=== PATIENT | female | born 2000 | race Caucasian/White ===

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

== ENCOUNTER → 2018-01-10 | Outpatient (REF) | payer OTHER ==
[2018-01-10 17:05] LABS: CHOLESTEROL LEVEL 220 MG/DL (<200); CHOLESTEROL RISK RATIO 5.116 (<5); HDL CHOLESTEROL 43 MG/DL (>40); LDL CHOLESTEROL 160.8 MG/DL (<100); NON-HDL-C 177 MG/DL; TRIGLYCERIDES LEVEL 81 MG/DL (<150)
== END ==
LOC: M SFHCCLAY 09:28
DX: E66.9 Obesity, unspecified (principal)
CPT/HCPCS: 80061

== ENCOUNTER → 2018-06-11 | Outpatient (REF) | payer OTHER ==
[2018-06-11 18:07] LABS: CHLAMYDIA DNA AMPLIFICATION NEGATIVE (NEGATIVE); GC DNA AMPLIFICATION NEGATIVE (NEGATIVE)
== END ==
LOC: M SFHCWAGY 16:00
DX: Z11.3 Encounter for screening for infections with a predominantly sexual mode of transmission (principal)

== ENCOUNTER → 2018-07-30 | Outpatient (CLI) | payer OTHER | LOC: M RAD 07:44 | DX: R10.11 Right upper quadrant pain (principal) ==

== ENCOUNTER → 2018-09-26 | Outpatient (CLI) | payer OTHER | LOC: M RAD 12:06 | DX: M54.5 Low back pain (principal); M54.2 Cervicalgia | CPT/HCPCS: 72052 ==

== ENCOUNTER → 2018-10-12 | Outpatient (CLI) | payer OTHER ==
[~2018-10-12] MED LIST: GASTROGRAFIN SOLUTION 30ML (Q9963) As Ordered; ISOVUE-370 76% 100ML VIAL (Q9967) As Ordered
== END ==
LOC: M RAD 16:31
DX: R10.11 Right upper quadrant pain (principal)
CPT/HCPCS: Q9963

== ENCOUNTER → 2018-10-29 | Outpatient (CLI) | payer OTHER ==
[~2018-10-29] MED LIST changes: -GASTROGRAFIN SOLUTION 30ML (Q9963) As Ordered; -ISOVUE-370 76% 100ML VIAL (Q9967) As Ordered; +LO LTAB PO; +OMEP20CA3 PO; +SUCR1TAB56 PO
--- NOTE | 2018-10-29 10:46 | REP ---
Hepatobiliary scan and gallbladder ejection fraction: History: Right upper quadrant pain. Technique: 6.6 mCi of technetium-99m mebrofenin was injected and sequential anterior images are acquired. 65 minutes after the mebrofenin injection, the patient consumed 8 ounces Ensure and an additional 60 minutes of imaging was acquired. Regions of interest are plotted around the gallbladder. Findings: The initial hepatocellular parenchymal uptake phase is normal and homogeneous. Intra- and extra-hepatic bile ducts and duodenum are labeled by the 10 -minute image. The gallbladder is first labeled on the 15 -minute image. There is normal washout from the liver parenchyma into the gallbladder and small intestine on subsequent images. The gallbladder ejection fraction is 53 %. Values greater than 35 % are considered normal with this technique. Impression: Normal hepatobiliary scan and normal gallbladder ejection fraction. Electronically Signed by Mello Sosa MD 10/29/2018 10:37 A
== END ==
LOC: M RAD 07:15
PROVIDERS: ATTEND Surgery
DX: R10.11 Right upper quadrant pain (principal)
CPT/HCPCS: 78227; A9537; J2805

== ENCOUNTER → 2018-11-26 | Outpatient (CLI) | payer OTHER ==
[~2018-11-26] MED LIST changes: +E-Z-GAS II EFFERVESCENT PACKET (SODIUM BICARB./CITRIC ACID/SIMETHICONE) As Ordered ONE; +E-Z-HD 98% w/w 340GM SUSP BTL As Ordered ONE; +E-Z-PAQUE 96% w/w SUSP 176GM BTL As Ordered ONE
--- NOTE | 2018-11-26 20:16 | REP ---
UPPER GI AIR CONTRAST AND SMALL BOWEL FOLLOW THROUGH The procedure was performed under the direct supervision of Dr. Sosa. The images were reviewed with Dr. Sosa The bottoming machine operator film shows no organomegaly or pathological masses. The intestinal gas pattern is non-specific. Liquid barium and gas producing crystals were given in the erect position as well as liquid barium in the prone oblique position in order to perform a double contrast upper GI examination. Additionally liquid barium was given at the end of the examination in order to perform a small bowel follow through. The oral and pharyngeal stages of deglutition are unremarkable. Esophageal transport is prompt and efficient and there is no esophagitis, stricture, mucosal ring or hiatal hernia. Gastroesophageal reflux is not demonstrated on this examination. The stomach ascencio are normally outlined . The rugal folds are smooth and regular. There is no gastritis neoplasm or ulcer disease. The duodenal ascencio are normally outlined . The mucosal folds are smooth and regular. There is no duodenitis pancreatitis peptic ulcer disease or neoplasm. The visualized portion of the proximal small bowel appears normal in course and caliber. The barium column was followed through the small bowel to the level of the terminal ileum. Small bowel transit time is approximately 30 minutes . During fluoroscopy gentle palpation shows all loops are freely movable and pliable. There are no fixed or angulated loops. The small bowel mucosal pattern is normal in course and caliber. There is no transition to suggest a partial small-bowel obstruction. Spot filming of the terminal ileum shows it to be unremarkable. Impression: Essentially unremarkable double contrast upper GI and small bowel follow through examination. 2.5 minutes of fluoro time was utilized for this procedure. Reviewed by YAHAIRA Tracey 11/26/2018 04:56 P Electronically Signed by Mello Sosa MD 11/26/2018 08:09 P
== END ==
LOC: M RAD 10:45
PROVIDERS: ATTEND Surgery
DX: K21.9 Gastro-esophageal reflux disease without esophagitis (principal)

== ENCOUNTER → 2019-03-27 | Outpatient (REF) | payer OTHER ==
[~2019-03-27] MED LIST changes: -E-Z-GAS II EFFERVESCENT PACKET (SODIUM BICARB./CITRIC ACID/SIMETHICONE) As Ordered ONE; -E-Z-HD 98% w/w 340GM SUSP BTL As Ordered ONE; -E-Z-PAQUE 96% w/w SUSP 176GM BTL As Ordered ONE
== END ==
LOC: M SFHCLERA 17:14
PROVIDERS: ATTEND Physician Assistant
DX: J02.9 Acute pharyngitis, unspecified (principal)

== ENCOUNTER → 2019-05-13 | Outpatient (CLI) | payer OTHER ==
[~2019-05-13] MED LIST changes: +OMEP1CAP73 PO; -OMEP20CA3 PO
[2019-05-13 21:01] LABS: ALBUMIN 3.9 GM/DL (3.2-5.2); ALT/SGPT 27 U/L (12-78); BILIRUBIN,TOTAL 0.3 MG/DL (0.2-1.0); BLOOD UREA NITROGEN 12 MG/DL (7-18); CALCIUM LEVEL 8.9 MG/DL (8.5-10.1); CARBON DIOXIDE LEVEL 26 MEQ/L (21-32); CHLORIDE LEVEL 104 MEQ/L (98-107); GLUCOSE, FASTING 71 MG/DL (70-100); POTASSIUM SERUM 4.4 MEQ/L (3.5-5.1); SODIUM LEVEL 138 MEQ/L (136-145)
[2019-05-13 21:10] LABS: BASO # 0.1 10^3/uL (0.0-0.2); BASO % 0.4 % (0.0-1.0); EOS # 0.2 10^3/uL (0.0-0.50); EOS % 1.1 % (0.0-3.0); HEMATOCRIT 41.7 % (36.0-47.0); HEMOGLOBIN 13.7 g/dl (12.0-15.5); LYMPH % 17.6 % (24.0-44.0); MEAN CORPUSCULAR HEMOGLOBIN 28.8 pg (27.0-33.0); MEAN CORPUSCULAR HGB CONC 32.9 g/dl (32.0-36.5); MEAN CORPUSCULAR VOLUME 87.6 fl (80.0-96.0); MONO # 1.5 10^3/uL (0.0-0.8); MONO % 9.1 % (0.0-5.0); NEUTROPHILS # 12.1 10^3/uL (1.8-7.7); NEUTROPHILS % 71.3 % (36.0-66.0); PLATELET COUNT, AUTOMATED 347 10^3/uL (150-450); RED BLOOD COUNT 4.76 10^6/uL (4.00-5.40)
[2019-05-15 14:34] LABS: EBV AB TO NUCLEAR ANTIGEN >600.0 U/mL (0.0-17.9); EBV VIRAL CAPSID AG IgM <36.0 U/mL (0.0-35.9)
== END ==
LOC: M WUC 18:28
PROVIDERS: ATTEND Physician Assistant
DX: J01.10 Acute frontal sinusitis, unspecified (principal)

== ENCOUNTER → 2019-05-19 | Outpatient (CLI) | payer OTHER ==
[~2019-05-19] MED LIST changes: -OMEP1CAP73 PO; +OMEP20CA4 PO
[2019-05-19 17:29] LABS: BASO # 0.1 10^3/uL (0.0-0.2); BASO % 0.7 % (0.0-1.0); EOS # 0.3 10^3/uL (0.0-0.50); EOS % 4.4 % (0.0-3.0); HEMATOCRIT 40.7 % (36.0-47.0); HEMOGLOBIN 13.2 g/dl (12.0-15.5); LYMPH # 2.8 10^3/uL (1.5-6.5); LYMPH % 36.3 % (24.0-44.0); MEAN CORPUSCULAR HEMOGLOBIN 29.2 pg (27.0-33.0); MEAN CORPUSCULAR HGB CONC 32.4 g/dl (32.0-36.5); MONO # 0.3 10^3/uL (0.0-0.8); MONO % 4.2 % (0.0-5.0); NEUTROPHILS # 4.1 10^3/uL (1.8-7.7); NEUTROPHILS % 54.1 % (36.0-66.0); PLATELET COUNT, AUTOMATED 388 10^3/uL (150-450); RED BLOOD COUNT 4.52 10^6/uL (4.00-5.40); WHITE BLOOD COUNT 7.6 10^3/uL (4.0-10.0)
== END ==
LOC: M WUC 09:15
PROVIDERS: ATTEND Physician Assistant
DX: J01.10 Acute frontal sinusitis, unspecified (principal)

== ENCOUNTER → 2019-06-12 | Outpatient (REF) | payer OTHER ==
[2019-06-12 16:32] LABS: CHLAMYDIA DNA AMPLIFICATION NEGATIVE (NEGATIVE); GC DNA AMPLIFICATION NEGATIVE (NEGATIVE)
== END ==
LOC: M SFHCWAGY 10:34
PROVIDERS: ATTEND Nurse Practitioner Family
DX: Z12.4 Encounter for screening for malignant neoplasm of cervix (principal)

== ENCOUNTER → 2019-12-24 | Outpatient (REF) | payer OTHER ==
[~2019-12-24] MED LIST changes: +OMEP1CAP73 PO; -OMEP20CA4 PO
[2019-12-24 12:23] LABS: BASO % 0.7 % (0.0-1.0); EOS # 0.2 10^3/uL (0.0-0.5); EOS % 3.4 % (0.0-3.0); HEMATOCRIT 44.8 % (36.0-47.0); HEMOGLOBIN 13.9 g/dl (12.0-15.5); LYMPH # 2.3 10^3/uL (1.5-5.0); LYMPH % 38.1 % (24.0-44.0); MEAN CORPUSCULAR HEMOGLOBIN 28.4 pg (27.0-33.0); MEAN CORPUSCULAR VOLUME 91.6 fl (80.0-96.0); MONO # 0.5 10^3/uL (0.0-0.8); MONO % 7.7 % (0.0-5.0); NEUTROPHILS % 49.9 % (36.0-66.0); PLATELET COUNT, AUTOMATED 323 10^3/uL (150-450); RED BLOOD COUNT 4.89 10^6/uL (4.00-5.40)
[2019-12-24 12:43] LABS: ALBUMIN 3.7 GM/DL (3.2-5.2); ALT/SGPT 23 U/L (12-78); BILIRUBIN,TOTAL 0.2 MG/DL (0.2-1.0); BLOOD UREA NITROGEN 13 MG/DL (7-18); CALCIUM LEVEL 9.2 MG/DL (8.5-10.1); CARBON DIOXIDE LEVEL 29 MEQ/L (21-32); CHLORIDE LEVEL 109 MEQ/L (98-107); CHOLESTEROL LEVEL 214 MG/DL (<200); CHOLESTEROL RISK RATIO 5.095 (<5); CREATININE FOR GFR 0.75 MG/DL (0.55-1.30); FREE T4 1.05 NG/DL (0.76-1.46); GLOMERULAR FILTRATION RATE > 60.0 (>60); GLUCOSE, FASTING 89 MG/DL (70-100); HDL CHOLESTEROL 42 MG/DL (>40); LDL CHOLESTEROL 150 MG/DL (<100); NON-HDL-C 172 MG/DL; POTASSIUM SERUM 4.8 MEQ/L (3.5-5.1); SODIUM LEVEL 142 MEQ/L (136-145); TOTAL PROTEIN 7.1 GM/DL (6.4-8.2); TRIGLYCERIDES LEVEL 109 MG/DL (<150)
[2019-12-24 13:03] LABS: HEMOGLOBIN A1c 5.2 %
== END ==
LOC: M SFHCCLAY 07:40
PROVIDERS: ATTEND Nurse Practitioner Family
DX: K11.20 Sialoadenitis, unspecified (principal); Z68.41 Body mass index [BMI] 40.0-44.9, adult; E66.9 Obesity, unspecified; Z83.49 Family history of other endocrine, nutritional and metabolic diseases

== ENCOUNTER → 2020-01-02 | Outpatient (CLI) | payer OTHER ==
--- NOTE | 2020-01-02 15:27 | REP ---
SOFT TISSUE SONOGRAPHY OF THE NECK: HISTORY: Lump near the thyroid. Submandibular gland inflammation. FINDINGS: Bilateral submandibular gland area is scanned. The right submandibular gland measures 3.4 x 1.6 x 3.1 cm. There is a small lymph node within the right submandibular gland measuring 0.6 x 0.6 x 0.5 cm. The palpable area in the right side of the neck is scanned and this felt to correspond to a lymph node measuring 2.1 x 0.9 x 1.6 cm. This appears hypoechoic and somewhat enlarged with ascencio of hilar architecture. There is a adjacent smaller lymph node measuring 1.3 x 0.4 x 1.6 cm in the right neck. On the left submandibular gland measures 4.0 x 2.3 x 2.6 cm. There is an 0.9 x 0.6 x 1.4 cm lymph node in the left submandibular gland. There are two lymph nodes in the left neck, the largest of which measures 2.7 x 1.3 x 1.0 cm. This lymph node has preserved hilar architecture but that cortical thickening consistent with hypertrophy. IMPRESSION: Mild bilateral cervical lymphadenopathy. Clinical followup is recommended. If these do not subsided, ultrasound guided fine needle aspiration could be considered. Electronically Signed by Mello Sosa MD 01/02/2020 05:06 P
== END ==
LOC: M RAD 12:58
PROVIDERS: ATTEND Nurse Practitioner Family
DX: K11.20 Sialoadenitis, unspecified (principal)

== ENCOUNTER → 2020-02-25 | Outpatient (CLI) | payer OTHER | LOC: M LABSMTC 11:11 | PROVIDERS: ATTEND Family Medicine | DX: Z11.59 Encounter for screening for other viral diseases (principal); Z20.818 Contact with and (suspected) exposure to other bacterial communicable diseases ==

== ENCOUNTER → 2020-04-23 | Outpatient (REF) | payer OTHER | LOC: M SFHCCLAY 11:16 | PROVIDERS: ATTEND Nurse Practitioner Family | DX: Z11.59 Encounter for screening for other viral diseases (principal) ==

== ENCOUNTER → 2020-05-05 | Outpatient (REF) | payer OTHER ==
[~2020-05-05] MED LIST changes: +AMOX875T; +PRED20TA PO
== END ==
LOC: M SFHCCLAY 11:13
PROVIDERS: ATTEND Nurse Practitioner Family
DX: Z11.59 Encounter for screening for other viral diseases (principal)

== ENCOUNTER 2020-05-25 09:31 | Emergency (ER) | payer OTHER ==
[~2020-05-25] VITALS: Ht 167.6 cm; Wt 126.1 kg
[~2020-05-25 09:31] MED LIST changes: -AMOX875T; -PRED20TA PO
[2020-05-25] MEDS ORDERED: AMOX875T (09:39)
[2020-05-25] MEDS ORDERED: predniSONE 20 MG TAB PO ONE (11:15)
[2020-05-25 11:32] LABS: BASO # 0.1 10^3/uL (0.0-0.2); BASO % 0.5 % (0.0-1.0); EOS # 0.1 10^3/uL (0.0-0.5); EOS % 1.4 % (0.0-3.0); HEMATOCRIT 44.7 % (36.0-47.0); HEMOGLOBIN 14.6 g/dl (12.0-15.5); LYMPH # 1.9 10^3/uL (1.5-5.0); LYMPH % 18.5 % (24.0-44.0); MEAN CORPUSCULAR HEMOGLOBIN 28.9 pg (27.0-33.0); MEAN CORPUSCULAR HGB CONC 32.7 g/dl (32.0-36.5); MEAN CORPUSCULAR VOLUME 88.5 fl (80.0-96.0); MONO # 0.7 10^3/uL (0.0-0.8); MONO % 6.9 % (0.0-5.0); NEUTROPHILS # 7.3 10^3/uL (1.5-8.5); NEUTROPHILS % 72.3 % (36.0-66.0); PLATELET COUNT, AUTOMATED 278 10^3/uL (150-450); RED BLOOD COUNT 5.05 10^6/uL (4.00-5.40); WHITE BLOOD COUNT 10.1 10^3/uL (4.0-10.0)
[2020-05-25 11:58] LABS: MONO REFLEX EBV COMP NEGATIVE (NEGATIVE)
[2020-05-25] MEDS ORDERED: ISOVUE-370 76% 100ML VIAL As Ordered ONE (12:40)
--- NOTE | 2020-05-25 13:11 | REPVR ---
PROCEDURE INFORMATION: Exam: CT Neck With Contrast Exam date and time: 05/25/2020 12:49 PM Age: 19 years old Clinical indication: Pain; Other: Sore throat, trouble swallowing, sts on xray TECHNIQUE: Imaging protocol: Computed tomography images of the neck with intravenous contrast. Radiation optimization: All CT scans at this facility use at least one of these dose optimization techniques: automated exposure control; mA and/or kV adjustment per patient size (includes targeted exams where dose is matched to clinical indication); or iterative reconstruction. Contrast material: ISOVUE 370; Contrast volume: 75 ml; Contrast route: INTRAVENOUS (IV); COMPARISON: CR Soft Tissue Neck 05/25/2020 11:26 AM FINDINGS: Nasopharynx: There is diffuse thickening of the adenoids, with heterogeneity. Oropharynx: The lingual tonsils are enlarged, potentially reactive. Hypopharynx: Unremarkable. Larynx: Unremarkable. Normal epiglottis. Retropharyngeal space: Unremarkable. Submandibular/Parotid glands: Normal. Glands are normal in size. Thyroid: Normal. No enlarged or calcified nodules. Lymph nodes: There are enlarged upper cervical lymph nodes, likely reactive. Trachea: Visualized trachea is unremarkable. Lungs: Unremarkable as visualized. Bones/joints: Unremarkable. No acute fracture. Soft tissues: Unremarkable. No significant soft tissue swelling. IMPRESSION: Findings compatible with adenoiditis. Diffuse enlargement of the lingual tonsils may be reactive or inflammatory in nature. Associated lymphadenopathy. Electronically signed by: Alina Kitchen On 05/25/2020 13:10:50 PM
[2020-05-25 13:41] VITALS: BP 132/76
[2020-05-25] MEDS ORDERED: PRED20TA PO (13:42)
--- NOTE | 2020-05-25 14:32 | REP ---
REASON FOR EXAM: Sore throat, difficulty swallowing. PRIORS: None. The base of the epiglottis seems thickened and possibly slightly compromising the airway. The neck soft tissues are otherwise within normal limits. There is no evidence of a retropharyngeal abscess. IMPRESSION: Findings involving the epiglottis as described above. Contrast enhanced neck CT is recommended. Electronically Signed by Ramesh Nichols DO 05/25/2020 05:13 P
--- NOTE | 2020-05-26 14:08 | ED PDOC ---
Post-Departure Follow-Up requested wallace calle to contact pt to assess condition. if improved she will fax st neck to [facility]. if worse pt to come back to ED. This report will be faxed to [facility] for fu Yuli House MD May 26, 2020 14:08
[2020-05-26 18:13] LABS: EBV AB TO NUCLEAR ANTIGEN >600.0 U/mL (0.0-17.9); EBV VIRAL CAPSID AG IgM <36.0 U/mL (0.0-35.9)
== END 2020-05-25 14:00 | disposition home or self-care (01) ==
LOC: M ED 09:31
DX: J03.90 Acute tonsillitis, unspecified (principal); R59.0 Localized enlarged lymph nodes; Z79.3 Long term (current) use of hormonal contraceptives; Z79.899 Other long term (current) drug therapy
CPT/HCPCS: 70360; 70491; 80047; 84702; 85025; 86308; 86664; 86665; 87880; 99284; Q9967

== ENCOUNTER → 2020-07-06 | Outpatient (CLI) | payer OTHER ==
[~2020-07-06] MED LIST changes: +AMOX875T; +PRED20TA PO
--- NOTE | 2020-08-07 09:19 | REP ---
PELVIC ULTRASOUND: HISTORY: Pelvic pain. Ovarian cyst. TECHNIQUE: Transabdominal pelvic ultrasound followed by transvaginal examination for better evaluation of the endometrium and adnexa with color Doppler evaluation of the ovaries. FINDINGS: The bladder appears normal and measures 10.2 x 7.8 x 7.8 cm. Normal anteverted uterus measures 5.3 x 2.9 x 3.3 cm. The endometrial complex measures 3.3 mm thickness. No discrete uterine or endometrial abnormalities are identified. The bilateral ovaries are normal in appearance and vascularity with multiple follicles. No significant cystic changes are appreciated. The right ovary measures 2.9 x 1.8 x 1.6 cm (RI equals 0.51). The left ovary measures 3.2 x 1.7 x 2.1 cm (RI equals 0.57). No pelvic fluid or adnexal mass lesion. IMPRESSION: Normal pelvic ultrasound. MTDD
== END ==
LOC: M WHC 13:03
PROVIDERS: ATTEND Nurse Practitioner Family
DX: N83.299 Other ovarian cyst, unspecified side (principal)

== ENCOUNTER → 2020-07-16 | Outpatient (CLI) | payer OTHER ==
--- NOTE | 2020-08-11 14:27 | REP ---
NECK ULTRASOUND CLINICAL: Lymphadenopathy. COMPARISON: 01/02/2020. TECHNIQUE: Real-time rincon scale and color evaluation using linear high frequency and curved array transducers. FINDINGS: Ultrasound examination again demonstrates bilateral prominent cervical chain lymph nodes essentially stable and unchanged compared to prior examination. Right-sided lymph nodes measure 21 x 5 x 11, 23 x 6 x 13, and 22 x 8 x 17 mm. Left-sided lymph nodes measure 10 x 5 x 10 mm, 12 x 9 x 4 mm, and 25 x 30 x 12 mm. IMPRESSION: Mildly prominent bilateral adenopathy (right greater than left) similar to prior examination. MTDD
== END ==
LOC: M RAD 16:01
PROVIDERS: ATTEND Otolaryngology
DX: R59.1 Generalized enlarged lymph nodes (principal)

== ENCOUNTER → 2020-10-29 | Outpatient (REF) | payer OTHER | LOC: M LAB REF 15:53 | PROVIDERS: ATTEND Physician Assistant | DX: Z11.59 Encounter for screening for other viral diseases (principal) ==

== ENCOUNTER → 2021-01-20 | Outpatient (REF) | payer OTHER ==
[2021-01-20 17:17] LABS: BASO # 0.1 10^3/uL (0.0-0.2); BASO % 0.7 % (0.0-1.0); EOS # 0.3 10^3/uL (0.0-0.5); EOS % 3.4 % (0.0-3.0); HEMATOCRIT 43.7 % (36.0-47.0); HEMOGLOBIN 14.1 g/dl (12.0-15.5); LYMPH % 36.8 % (24.0-44.0); MEAN CORPUSCULAR HEMOGLOBIN 29.1 pg (27.0-33.0); MEAN CORPUSCULAR HGB CONC 32.3 g/dl (32.0-36.5); MEAN CORPUSCULAR VOLUME 90.1 fl (80.0-96.0); MONO # 0.7 10^3/uL (0.0-0.8); MONO % 8.2 % (2.0-8.0); NEUTROPHILS # 4.2 10^3/uL (1.5-8.5); NEUTROPHILS % 50.5 % (36.0-66.0); PLATELET COUNT, AUTOMATED 373 10^3/uL (150-450); RED BLOOD COUNT 4.85 10^6/uL (4.00-5.40); WHITE BLOOD COUNT 8.2 10^3/uL (4.0-10.0)
[2021-01-20 17:19] LABS: ALBUMIN 3.7 GM/DL (3.2-5.2); ALT/SGPT 24 U/L (12-78); BILIRUBIN,TOTAL 0.2 MG/DL (0.2-1.0); BLOOD UREA NITROGEN 12 MG/DL (7-18); CALCIUM LEVEL 9.8 MG/DL (8.5-10.1); CARBON DIOXIDE LEVEL 31 MEQ/L (21-32); CHLORIDE LEVEL 103 MEQ/L (98-107); CHOLESTEROL LEVEL 229 MG/DL (<200); CHOLESTEROL RISK RATIO 5.452 (<5); CREATININE FOR GFR 0.67 MG/DL (0.55-1.30); FREE T4 0.82 NG/DL (0.76-1.46); GLOMERULAR FILTRATION RATE > 60.0 (>60); GLUCOSE, FASTING 87 MG/DL (70-100); HDL CHOLESTEROL 42 MG/DL (>40); LDL CHOLESTEROL 156 MG/DL (<100); NON-HDL-C 187 MG/DL; POTASSIUM SERUM 4.8 MEQ/L (3.5-5.1); SODIUM LEVEL 139 MEQ/L (136-145); TOTAL PROTEIN 7.5 GM/DL (6.4-8.2); TRIGLYCERIDES LEVEL 153 MG/DL (<150)
[2021-01-20 18:53] LABS: HEMOGLOBIN A1c 5.4 %
== END ==
LOC: M SFHCCLAY 13:59
PROVIDERS: ATTEND Nurse Practitioner Family
DX: E66.9 Obesity, unspecified (principal); K21.9 Gastro-esophageal reflux disease without esophagitis; F41.8 Other specified anxiety disorders

== ENCOUNTER → 2021-03-04 | Outpatient (REF) | payer OTHER | LOC: M SFHCCLAY 16:49 | PROVIDERS: ATTEND Physician Assistant | DX: J02.9 Acute pharyngitis, unspecified (principal) ==

== ENCOUNTER 2021-03-19 16:55 | Observation (INO) | payer OTHER ==
[~2021-03-19] VITALS: Ht 165.1 cm; Wt 128.1 kg
[2021-03-19] MEDS ORDERED: LEXA1TAB2 PO (17:15)
[2021-03-19] MEDS ORDERED: dexameTHASONE 20MG/5ML VIAL (J1100 PER 1MG) IV ONE (18:50)
[2021-03-19 19:05] LABS: BASO # 0.1 10^3/uL (0.0-0.2); BASO % 0.6 % (0.0-1.0); EOS # 0.2 10^3/uL (0.0-0.5); EOS % 2.3 % (0.0-3.0); HEMOGLOBIN 14.8 g/dl (12.0-15.5); LYMPH % 33.4 % (24.0-44.0); MEAN CORPUSCULAR HEMOGLOBIN 29.3 pg (27.0-33.0); MEAN CORPUSCULAR HGB CONC 32.2 g/dl (32.0-36.5); MEAN CORPUSCULAR VOLUME 91.1 fl (80.0-96.0); MONO # 0.9 10^3/uL (0.0-0.8); MONO % 9.4 % (2.0-8.0); NEUTROPHILS # 4.9 10^3/uL (1.5-8.5); NEUTROPHILS % 54.1 % (36.0-66.0); PLATELET COUNT, AUTOMATED 362 10^3/uL (150-450); RED BLOOD COUNT 5.05 10^6/uL (4.00-5.40)
[2021-03-19 19:29] LABS: MONO REFLEX EBV COMP NEGATIVE (NEGATIVE)
[2021-03-19 19:36] LABS: FREE T4 0.94 NG/DL (0.76-1.46); THYROID STIMULATING HORMONE 2.03 uIU/ML (0.358-3.740)
[2021-03-19] MEDS ORDERED: ISOVUE-370 76% 100ML VIAL As Ordered ONE (19:44)
--- NOTE | 2021-03-19 20:54 | REPVR ---
PROCEDURE INFORMATION: Exam: CT Neck With Contrast Exam date and time: 03/19/2021 8:11 PM Age: 20 years old Clinical indication: Other: Sore throat; Additional info: Sore throat; HX of epiglottitis TECHNIQUE: Imaging protocol: Computed tomography images of the neck with contrast. Radiation optimization: All CT scans at this facility use at least one of these dose optimization techniques: automated exposure control; mA and/or kV adjustment per patient size (includes targeted exams where dose is matched to clinical indication); or iterative reconstruction. Contrast material: ISOVUE 370; Contrast volume: 75 ml; Contrast route: INTRAVENOUS (IV); COMPARISON: CT Neck with contrast 05/25/2020 12:41 PM FINDINGS: Nasopharynx: Unremarkable. Oropharynx: Unremarkable. No significant tonsillar enlargement. Hypopharynx: Unremarkable. Larynx: Epiglottis is diffusely thickened and enlarged. Airway is mildly narrowed at the level of the epiglottis. No epiglottic abscess or discrete measurable mass is seen. Retropharyngeal space: Unremarkable. Submandibular/Parotid glands: Normal. Glands are normal in size. Thyroid: Normal. No enlarged or calcified nodules. Lymph nodes: Bilateral cervical lymphadenopathy. Largest left level 2 lymph node measures 2.2 cm. Largest right level 3 lymph node measures 2.0 cm. Trachea: Visualized trachea is unremarkable. Lungs: Unremarkable as visualized. Bones/joints: Unremarkable. No acute fracture. Soft tissues: Unremarkable. No significant soft tissue swelling. IMPRESSION: 1. Epiglottitis with diffusely enlarged, edematous epiglottis causing mild airway stenosis. 2. Reactive cervical lymphadenopathy. Electronically signed by: Lv Tan On 03/19/2021 20:54:14 PM
[2021-03-19] MEDS ORDERED: ESCITALOPRAM OXALATE 10 MG TAB (LEXAPRO) PO SCH (21:00)
[2021-03-19] MEDS ORDERED: AMPICILLIN SOD/SULBACTAM SOD 3 GM in D5W MINI-BAG PLUS 100 ML IV ONE (21:50)
[2021-03-19] MEDS ORDERED: NS 1,000 ML IV ONE (23:25)
--- NOTE | 2021-03-19 23:56 | HPEPDOC ---
[facility] Medical History & Physical Date of Admission March 19, 2021 Date of Service: March 19, 2021 History and Physical CHIEF COMPLAINT: Throat pain HISTORY OF PRESENT ILLNESS: 20-year-old female history of anxiety who presents to the emergency department throat pain that is progressing over the past several days starting on Monday. Patient was seen with mother at bedside in the emergency department. She tells me that 2 weeks ago she had similar complaints and was seen by her PCP who prescribed antibiotics and performed a throat swab. A few days later she was called and told her swab was negative and to stop the antibiotics. 2 days later her symptoms resolved and she was feeling good. Then about a week past and symptoms recurred again this time more severe. She tells me her throat pain is associated with what feels like a little swelling at the back of her throat. In the emergency department she was eating [employer] fries and a sandwich without any trouble. She denies fevers or chills denies any nausea or vomiting denies difficulty breathing. Patient was evaluated by Dr. Pablo ENT in the emergency department who diagnosed her with lingular tonsillitis. CT scan of the neck done in the ED was suggestive of epiglottitis. Dr. Pablo suggested patient be admitted for close observation in the ICU with IV steroids and antibiotics. PAST MEDICAL/SURGICAL HISTORY: Anxiety Endorses tonsillectomy and adenoidectomy at age 5 SOCIAL HISTORY: Dosage drinking alcohol socially Denies tobacco use Denies illicit drug use FAMILY HISTORY: Reviewed and none contributory to this admission Sister has a history of follicular thyroid cancer ALLERGIES: Please see below. REVIEW OF SYSTEMS: 10 point review of systems complete all negative otherwise stated in HPI HOME MEDICATIONS: Please see below. PHYSICAL EXAMINATION: Constitutional: Awake and alert, in no apparent distress ENT: Sclera are clear. Mucosa is moist. Inspection of her throat reveals perhaps a slightly edema in his posterior pharynx Respiratory: Lungs CTA bilaterally. No respiratory distress. No use of accessory muscles. Cardiovascular: RRR S1 and S2 are normal, no murmur Gastrointestinal: Abdomen is soft, non distended, non tender, BS present. Musculoskeletal: No lower extremity edema. RUE 5/5, LUE 5/5, BLE 5/5 Neurologic: No focal neurological deficit. Mental Status: A&O x3, normal affect Skin: Warm, dry LABORATORY DATA: See below. IMAGING: See chart CT neck with contrast IMPRESSION: 1. Epiglottitis with diffusely enlarged, edematous epiglottis causing mild airway stenosis. 2. Reactive cervical lymphadenopathy. MICROBIOLOGY: Please see below. ASSESSMENT Lingular tonsillitis PLAN Patient will be admitted for observation overnight with close monitoring in the intensive care unit. Although the CT reading suggested epiglottitis Dr. Pablo diagnosed patient with lingular tonsillitis on his exam. Patient will be given IV Unasyn and IV steroids every 8 hours per ENT recommendations. ENT was consulted. Since patient wasn't really eating [employer] comfortably with no trouble swallowing she can have a diet. We can continue her Lexapro for anxiety. DVT prophylaxis with Lovenox [facility] Hospitalist Vital Signs Vital Signs Date Time Temp Pulse Resp B/P (MAP) Pulse Ox O2 Delivery O2 Flow Rate FiO2 03/19/21 18:29 Automatic Cuff (NIBP) Left Arm 03/19/21 16:56 97.9 87 20 100 Room Air Laboratory Data Labs 24H Laboratory Tests 2 03/19/21 18:51: Immature Granulocyte % (Auto) 0.2, Neutrophils (%) (Auto) 54.1, Lymphocytes (%) (Auto) 33.4, Monocytes (%) (Auto) 9.4H, Eosinophils (%) (Auto) 2.3, Basophils (%) (Auto) 0.6, Neutrophils # (Auto) 4.9, Lymphocytes # (Auto) 3.0, Monocytes # (Auto) 0.9H, Eosinophils # (Auto) 0.2, Basophils # (Auto) 0.1, Nucleated Red Blood Cells % (auto) 0.0, Thyroid Stimulating Hormone (TSH) 2.030, Free Thyroxine 0.94, Monoscreen NEGATIVE 03/19/21 19:02: POC Glucose (Misc Panel) 86, POC Sodium (Misc Panel) 141, POC Potassium (Misc Panel) 4.3, POC Chloride (Misc Panel) 104, POC Total CO2 (Misc Panel) 29.0H, POC Blood Urea Nitrogen (Misc Panel 11, POC Ionized Calcium (Misc Panel) 5.0, POC Creatinine (Misc Panel) 0.7, POC Hematocrit (Misc Panel) 46.0 03/19/21 19:03: POC Beta HCG, Quantitative < 5.0 CBC/BMP Laboratory Tests 5/7/21 18:51 Microbiology Microbiology 03/19/21 Respiratory Virus Panel (PCR) ([facility]), Received Pending Home Medications Scheduled Escitalopram Oxalate (Lexapro) 20 Mg Tablet, 20 MG PO QHS Allergies Coded Allergies: No Known Allergies (Unverified , 11/14/18) A-FIB/CHADSVASC A-FIB History Current/History of A-Fib/PAF?: No YOUSEFONIEL MD March 19, 2021 23:56
[2021-03-20] MEDS ORDERED: methylPREDNISolone 125MG 2ML VIAL IV SCH (02:00)
[2021-03-20 02:16] VITALS: BP 132/72
[2021-03-20] MEDS: methylPREDNISolone 1,000 MG, VIAL MATE ADAPTER 1 EACH in NS 250 ML IV SCH ×2 (03:06→10:08)
[2021-03-20 04:00] VITALS: BP 123/72
[2021-03-20 04:33] LABS: HEMOGLOBIN 14.5 g/dl (12.0-15.5); MEAN CORPUSCULAR HEMOGLOBIN 29.2 pg (27.0-33.0); MEAN CORPUSCULAR VOLUME 88.7 fl (80.0-96.0); PLATELET COUNT, AUTOMATED 395 10^3/uL (150-450); RED BLOOD COUNT 4.96 10^6/uL (4.00-5.40); WHITE BLOOD COUNT 8.7 10^3/uL (4.0-10.0)
[2021-03-20 04:57] LABS: ALT/SGPT 33 U/L (12-78); BILIRUBIN,TOTAL 0.3 MG/DL (0.2-1.0); BLOOD UREA NITROGEN 10 MG/DL (7-18); CALCIUM LEVEL 10.1 MG/DL (8.5-10.1); CARBON DIOXIDE LEVEL 27 MEQ/L (21-32); CHLORIDE LEVEL 108 MEQ/L (98-107); CREATININE FOR GFR 0.67 MG/DL (0.55-1.30); GLOMERULAR FILTRATION RATE > 60.0 (>60); GLUCOSE, FASTING 162 MG/DL (70-100); MAGNESIUM LEVEL 2.3 MG/DL (1.8-2.4); POTASSIUM SERUM 4.6 MEQ/L (3.5-5.1); SODIUM LEVEL 139 MEQ/L (136-145)
[2021-03-20] MEDS: AMPICILLIN SOD/SULBACTAM SOD 3 GM in D5W MINI-BAG PLUS 100 ML IV SCH ×2 (05:43→11:55)
[2021-03-20] MEDS ORDERED: ENOXAPARIN 40MG/0.4ML SYRINGE (J1650 PER 10MG) SC SCH (09:00)
[2021-03-20] MEDS ORDERED: PROB1CAP10 PO (13:18)
[2021-03-20] MEDS ORDERED: CLIN150C15 PO (13:18)
[2021-03-20] MEDS ORDERED: PRED20TA PO (13:18)
--- NOTE | 2021-03-20 13:39 | DS.PDOC ---
Discharge Summary General Date of Admission March 19, 2021 at 16:56 Date of Discharge HISTORY OF PRESENT ILLNESS: 20-year-old female history of anxiety who presents to the emergency department throat pain that is progressing over the past several days starting on Monday. Patient was seen with mother at bedside in the emergency department. She tells me that 2 weeks ago she had similar complaints and was seen by her PCP who prescribed antibiotics and performed a throat swab. A few days later she was called and told her swab was negative and to stop the antibiotics. 2 days later her symptoms resolved and she was feeling good. Then about a week past and symptoms recurred again this time more severe. She tells me her throat pain is associated with what feels like a little swelling at the back of her throat. In the emergency department she was eating [employer] fries and a sandwich without any trouble. She denies fevers or chills denies any nausea or vomiting denies difficulty breathing. Patient was evaluated by Dr. Pablo ENT in the emergency department who diagnosed her with lingular tonsillitis. CT scan of the neck done in the ED was suggestive of epiglottitis. Dr. Pablo suggested patient was admitted for close observation in the ICU with IV steroids and antibiotics. HOSPITAL COURSE: PAST MEDICAL/SURGICAL HISTORY: Anxiety tonsillectomy when child adenoidectomy when child SOCIAL HISTORY: Dosage drinking alcohol socially Denies tobacco use Denies illicit drug use FAMILY HISTORY: Reviewed and none contributory to this admission Sister has a history of follicular thyroid cancer ALLERGIES: Please see below. DISCHARGE MEDICATIONS: Please see below. PHYSICAL EXAMINATION: VS: Please see below Constitutional: Awake and alert, in no apparent distress ENT: Sclera are clear. Mucosa is moist. Inspection of her throat - mild edema in his posterior pharynx Respiratory: Lungs CTA bilaterally. No respiratory distress. No use of accessory muscles. Cardiovascular: RRR S1 and S2 are normal, no murmur Gastrointestinal: Abdomen is soft, non distended, non tender, BS present Musculoskeletal: No lower extremity edema. RUE 5/5, LUE 5/5, BLE 5/5 Neurologic: No focal neurological deficit. Mental Status: A&O x3, normal affect Skin: Warm, dry LABORATORY DATA: See below. IMAGING: See chart CT neck with contrast 03/20/21: 1. Epiglottitis with diffusely enlarged, edematous epiglottis causing mild airway stenosis. 2. Reactive cervical lymphadenopathy. MICROBIOLOGY: Please see below. ASSESSMENT Lingular tonsillitis PLAN Patient will be admitted for observation overnight with close monitoring in the intensive care unit. Although the CT reading suggested epiglottitis Dr. Pablo diagnosed patient with lingular tonsillitis on his exam. Patient will be given IV Unasyn and IV steroids every 8 hours per ENT recommendations. ENT was consulted. Since patient wasn't really eating [employer] comfortably with no trouble swallowing she can have a diet. We can continue her Lexapro for anxiety. DVT prophylaxis with Lovenox Attending Physician: Mally Faulkner MD Discharge Summary HISTORY OF PRESENT ILLNESS: 20-year-old female history of anxiety who presents to the emergency department throat pain that is progressing over the past several days starting on Monday. Patient was seen with mother at bedside in the emergency department. She tells me that 2 weeks ago she had similar complaints and was seen by her PCP who prescribed antibiotics and performed a throat swab. A few days later she was called and told her swab was negative and to stop the antibiotics. 2 days later her symptoms resolved and she was feeling good. Then about a week past and sym ptoms recurred again this time more severe. She tells me her throat pain is associated with what feels like a little swelling at the back of her throat. In the emergency department she was eating [employer] fries and a sandwich without any trouble. She denies fevers or chills denies any nausea or vomiting denies difficulty breathing. Patient was evaluated by Dr. Pablo ENT in the emergency department who diagnosed her with lingular tonsillitis. CT scan of the neck done in the ED was suggestive of epiglottitis. When Dr. Pablo (ENT) evaluated, thought maybe more tonsilitis. He suggested patient be admitted for close observation in the ICU with IV steroids and antibiotics. HOSPITAL COURSE: Patient was kept on IV abx, steroids. Throat soreness much improved by AM on 03/20/21. Although lingular tonsils appeared large on exam, she was tolerating advanced diet well. Dr. Dennis scoped patient early AM and cleared patient for discharge. Allen neg, EBV testing pending. D/cing today with f/u after weekend with ENT. D/c meds include Po prednisone taper over 2 weeks, PO clindamycin x 10 days, probiotic. At time of discharge, patient was saturating well on RA, no acute complaints. PAST MEDICAL/SURGICAL HISTORY: Anxiety Endorses tonsillectomy and adenoidectomy at age 5 SOCIAL HISTORY: Dosage drinking alcohol socially Denies tobacco use Denies illicit drug use FAMILY HISTORY: Reviewed and none contributory to this admission Sister has a history of follicular thyroid cancer ALLERGIES: Please see below. REVIEW OF SYSTEMS: 10 point review of systems complete all negative otherwise stated in HPI HOME MEDICATIONS: Please see below. PHYSICAL EXAMINATION: Constitutional: Awake and alert, in no apparent distress ENT: Sclera are clear. Mucosa is moist. Inspection of her throat reveals perhaps a slightly edema in his posterior pharynx Respiratory: Lungs CTA bilaterally. No respiratory distress. No use of accessory muscles. Cardiovascular: RRR S1 and S2 are normal, no murmur Gastrointestinal: Abdomen is soft, non distended, non tender, BS present. Musculoskeletal: No lower extremity edema. RUE 5/5, LUE 5/5, BLE 5/5 Neurologic: No focal neurological deficit. Mental Status: A&O x3, normal affect Skin: Warm, dry LABORATORY DATA: See below. IMAGING: CT neck with contrast 1. Epiglottitis with diffusely enlarged, edematous epiglottis causing mild airway stenosis. 2. Reactive cervical lymphadenopathy. MICROBIOLOGY: Please see below. ASSESSMENT/PLAN: Lingular tonsillitis -improved symptoms, WBC wnl, afebrile, tolerating advanced diet -S/p scope by ENT (Dr. Dennis) -D/c today to f/u with him in office after , patient will be given number to call after monday. -D/c with clindamycin QID x 10 days, prednisone taper x 14 days, probiotic -To report to medical provider immediately any increased difficulty breathing, swallowing, fevers or chills. DISPOSITION: D/c home with f/u with ENT after weekend TIME SPENT ON DISCHARGE: 35 minutes. Vital Signs/I&Os Vital Signs Date Time Temp Pulse Resp B/P (MAP) Pulse Ox O2 Delivery O2 Flow Rate FiO2 03/20/21 06:00 96 94 Room Air 03/20/21 04:00 98.8 16 123/72 (89) I&O- Last 24 Hours up to 6 AM 03/20/21 05:59 Intake Total 1100 ml Balance 1100 ml Laboratory Data Labs 24H Laboratory Tests 2 03/19/21 18:51: Immature Granulocyte % (Auto) 0.2, Neutrophils (%) (Auto) 54.1, Lymphocytes (%) (Auto) 33.4, Monocytes (%) (Auto) 9.4H, Eosinophils (%) (Auto) 2.3, Basophils (%) (Auto) 0.6, Neutrophils # (Auto) 4.9, Lymphocytes # (Auto) 3.0, Monocytes # (Auto) 0.9H, Eosinophils # (Auto) 0.2, Basophils # (Auto) 0.1, Nucleated Red Blood Cells % (auto) 0.0, Thyroid Stimulating Hormone (TSH) 2.030, Free Thyroxine 0.94, Monoscreen NEGATIVE 03/19/21 19:02: POC Glucose (Misc Panel) 86, POC Sodium (Misc Panel) 141, POC Potassium (Misc Panel) 4.3, POC Chloride (Misc Panel) 104, POC Total CO2 (Misc Panel) 29.0H, POC Blood Urea Nitrogen (Misc Panel 11, POC Ionized Calcium (Misc Panel) 5.0, POC Creatinine (Misc Panel) 0.7, POC Hematocrit (Misc Panel) 46.0 03/19/21 19:03: POC Beta HCG, Quantitative < 5.0 03/20/21 04:23: Nucleated Red Blood Cells % (auto) 0.0, Anion Gap 4L, Glomerular Filtration Rate > 60.0, Calcium Level 10.1, Magnesium Level 2.3, Total Bilirubin 0.3, Aspartate Amino Transf (AST/SGOT) 16, Alanine Aminotransferase (ALT/SGPT) 33, Alkaline Phosphatase 81, Total Protein 8.0, Albumin 4.0, Albumin/Globulin Ratio 1.0L CBC/BMP Laboratory Tests 03/19/21 18:51 03/20/21 04:23 Microbiology Microbiology 03/19/21 Respiratory Virus Panel (PCR) ([facility]) - Final, Complete Discharge Medications Scheduled Clindamycin Hcl (Clindamycin HCl) 150 Mg Capsule, 300 MG PO QID Escitalopram Oxalate (Lexapro) 20 Mg Tablet, 20 MG PO QHS, (Reported) Lactobacillus Acidophilus (Probiotic Acidophilus) 1.5 Mg Capsule, 1 CAP PO BIDWM Prednisone (Prednisone) 20 Mg Tablet, 20 MG PO DAILY Prednisone taper: 20 mg Po x 7 days, 10 mg PO x 7 days Allergies Coded Allergies: No Known Allergies (Unverified , 11/14/18) Mally Faulkner MD March 20, 2021 13:38
--- NOTE | 2021-03-22 08:36 | HPE ---
HISTORY AND PHYSICAL DATE OF ADMISSION: 03/19/2021 HISTORY OF PRESENT ILLNESS: The patient was admitted with history of sore throat. The patient developed symptoms five days ago. It has progressed. She was on oral antibiotic therapy initially. She had a similar episode in May of last year. She presented with sore throat. She has no difficulty swallowing although she does cut up her food a bit smaller. She has no difficulty breathing but she finds that she has moved her tongue a certain way. She has some nasal obstruction. She has been scheduled for septoplasty and turbinectomy. When she was seen in May she had a diagnosis of lingular tonsillitis and adenoiditis. This responded to medical therapy. Otherwise, the patient is healthy except that there is a history of questionable diabetes, she is prediabetic. She has had a problem losing weight. EXAMINATION: The patient is alert and oriented, no distress with breathing. She is obese. She is lying in bed, sitting up. Examination of mouth shows that she has no tonsils because they were removed in the past. Her mouth looks fine. I did use a flexible fiberoptic nasal laryngoscope and examined the nose, nasopharynx and hypopharynx and larynx. She has swollen adenoids with some pus on them. There was swelling of the lingular tonsil and purulent discharge. There was minor edema of the epiglottis. The cords looked fine. Airway was clear. IMPRESSION: The patient presents with history of lingular tonsillitis and adenoiditis. There is a minor degree of swelling of the epiglottis. Because of this I think she best be managed in the ICU on IV antibiotic therapy and steroids. When she settles down then she can go home on her oral medications. She should consider having lingular tonsillectomy in the future.
[2021-03-22 12:07] LABS: EBV VIRAL CAPSID AG IgM <36.0 U/mL (0.0-35.9)
== END 2021-03-20 13:55 | disposition home or self-care (01) ==
LOC: M ED 16:55 → M ED INP 16:56 → M ICU 03-20 02:11
PROVIDERS: ADMIT Family Medicine; ATTEND Internal Medicine Nephrology
DX: J03.90 Acute tonsillitis, unspecified (principal); F41.9 Anxiety disorder, unspecified; Z79.899 Other long term (current) drug therapy; Z79.52 Long term (current) use of systemic steroids
CPT/HCPCS: 36415; 70491; 80047; 80053; 83735; 84439; 84443; 84702; 85025; 85027; 86308; 86664; 86665; 87798; 96361; 96365; 96366; 96367; 96375; 99284; J1100; J2930; Q9967

== ENCOUNTER → 2021-09-02 | Outpatient (REF) | payer OTHER ==
[~2021-09-02] MED LIST changes: +CLIN150C17 PO; +LEXA1TAB2 PO; +PROB1CAP10 PO
[2021-09-02 17:11] LABS: GC DNA AMPLIFICATION NEGATIVE (NEGATIVE)
== END ==
LOC: M SFHCWAGY 14:56
PROVIDERS: ATTEND Nurse Practitioner Women's Health
DX: Z11.3 Encounter for screening for infections with a predominantly sexual mode of transmission (principal)

== ENCOUNTER → 2021-09-14 | Outpatient (REF) | payer OTHER | LOC: M LAB REF 16:44 | PROVIDERS: ATTEND Physician Assistant Medical | DX: R50.9 Fever, unspecified (principal) ==

== ENCOUNTER → 2022-01-07 | Outpatient (CLI) | payer OTHER | LOC: M PLARAD 07:50 | PROVIDERS: ATTEND Physician Assistant | DX: S83.412A Sprain of medial collateral ligament of left knee, initial encounter (principal); M25.462 Effusion, left knee; X58.XXXA Exposure to other specified factors, initial encounter; Y92.9 Unspecified place or not applicable ==

== ENCOUNTER → 2022-01-20 | Outpatient (CLI) | payer OTHER ==
[2022-01-20 18:23] LABS: BASO # 0.1 10^3/uL (0.0-0.2); BASO % 0.7 % (0.0-1.0); EOS # 0.4 10^3/uL (0.0-0.5); EOS % 3.9 % (0.0-3.0); HEMATOCRIT 42.4 % (36.0-47.0); HEMOGLOBIN 13.9 g/dl (12.0-15.5); LYMPH # 3.2 10^3/uL (1.5-5.0); LYMPH % 35.2 % (24.0-44.0); MEAN CORPUSCULAR HEMOGLOBIN 29.4 pg (27.0-33.0); MEAN CORPUSCULAR HGB CONC 32.8 g/dl (32.0-36.5); MEAN CORPUSCULAR VOLUME 89.6 fl (80.0-96.0); MONO # 0.7 10^3/uL (0.0-0.8); NEUTROPHILS # 4.8 10^3/uL (1.5-8.5); PLATELET COUNT, AUTOMATED 326 10^3/uL (150-450); RED BLOOD COUNT 4.73 10^6/uL (4.00-5.40); WHITE BLOOD COUNT 9.2 10^3/uL (4.0-10.0)
[2022-01-20 18:48] LABS: ALBUMIN 3.7 GM/DL (3.2-5.2); ALT/SGPT 39 U/L (12-78); BILIRUBIN,TOTAL 0.2 MG/DL (0.2-1.0); BLOOD UREA NITROGEN 13 MG/DL (7-18); CALCIUM LEVEL 9.3 MG/DL (8.5-10.1); CARBON DIOXIDE LEVEL 30 MEQ/L (21-32); CHLORIDE LEVEL 105 MEQ/L (98-107); CREATININE FOR GFR 0.83 MG/DL (0.55-1.30); FREE T4 0.95 NG/DL (0.76-1.46); GLOMERULAR FILTRATION RATE > 60.0 (>60); GLUCOSE, FASTING 78 MG/DL (70-100); IRON (FE) 84 UG/DL (50-170); PERCENT SATURATION 25.7 % (13.2-45.0); POTASSIUM SERUM 4.3 MEQ/L (3.5-5.1); SODIUM LEVEL 139 MEQ/L (136-145); TOTAL IRON BINDING CAPACITY 327 UG/DL (250-450)
[2022-01-20 18:52] LABS: ERYTHROCYTE SEDIMENTATION RATE 10 mm/hr (0-20)
[2022-01-20 19:01] LABS: HEPATITIS B SURFACE ANTIGEN NEGATIVE (NEGATIVE)
[2022-01-20 19:28] LABS: HEPATITIS C VIRUS ABY INDEX 0.1 INDEX (<0.8)
[2022-01-20 19:29] LABS: HEPATITIS B CORE ANTIBODY IGM NEGATIVE (NEGATIVE); HIV 1&2 SCREEN CENTAUR NEGATIVE (NEGATIVE)
== END ==
LOC: M LAB 16:45
PROVIDERS: ATTEND Nurse Practitioner Family
DX: R63.4 Abnormal weight loss (principal); Z20.2 Contact with and (suspected) exposure to infections with a predominantly sexual mode of transmission; R59.9 Enlarged lymph nodes, unspecified; E04.9 Nontoxic goiter, unspecified

== ENCOUNTER → 2022-02-03 | Outpatient (CLI) | payer OTHER | LOC: M RAD 10:56 | PROVIDERS: ATTEND Nurse Practitioner Family | DX: E04.9 Nontoxic goiter, unspecified (principal) ==

== ENCOUNTER → 2022-02-10 | Outpatient (REF) | payer OTHER ==
[2022-02-10 12:18] LABS: FOLLICLE STIMULATING HORMONE 8.2 mIU/mL; LUTEINIZING HORMONE 7.2 mIU/mL
[2022-02-13 17:08] LABS: ESTROGENS TOTAL 144 pg/mL (.); IgG P18 AB Absent (.); IgG P23 AB Absent (.); IgG P28 AB Absent (.); IgG P30 AB Absent (.); IgG P39 AB Absent (.); IgG P41 AB Absent (.); IgG P45 AB Absent (.); IgG P66 AB Absent (.); IgG P93 AB Absent (.); IgM P23 AB Absent (.); IgM P39 AB Absent (.); IgM P41 AB Absent (.); LYME IgG WB INTERPRETATION Negative (.); LYME IgM WB INTERPRETATION Negative (.)
== END ==
LOC: M SFHCCLAY 07:41
PROVIDERS: ATTEND Nurse Practitioner Family
DX: L68.0 Hirsutism (principal); R59.9 Enlarged lymph nodes, unspecified

== ENCOUNTER → 2022-03-02 | Outpatient (REF) | payer OTHER | LOC: M LAB REF 19:50 | PROVIDERS: ATTEND Physician Assistant Medical | DX: R05.9 Cough, unspecified (principal); R50.9 Fever, unspecified ==

== ENCOUNTER 2022-04-01 10:31 | Emergency (ER) | payer OTHER ==
[~2022-04-01] VITALS: Ht 167.6 cm; Wt 106.1 kg
[2022-04-01] MEDS ORDERED: HYDR200T3 (10:50)
[2022-04-01] MEDS ORDERED: NS 500 ML IV ONE (12:35)
[2022-04-01] MEDS ORDERED: ONDANSETRON 4MG/2ML VIAL IV ONE (12:35)
[2022-04-01] MEDS ORDERED: KETOROLAC 30 MG/ML 1ML VIAL IV ONE (12:35)
[2022-04-01 13:30] LABS: HEMATOCRIT 45.1 % (36.0-47.0); HEMOGLOBIN 15.1 g/dl (12.0-15.5); MEAN CORPUSCULAR HEMOGLOBIN 30.4 pg (27.0-33.0); MEAN CORPUSCULAR HGB CONC 33.5 g/dl (32.0-36.5); MEAN CORPUSCULAR VOLUME 90.9 fl (80.0-96.0); PLATELET COUNT, AUTOMATED 366 10^3/uL (150-450); RED BLOOD COUNT 4.96 10^6/uL (4.00-5.40); WHITE BLOOD COUNT 10.9 10^3/uL (4.0-10.0)
[2022-04-01] MEDS ORDERED: diphenhydrAMINE 50MG/ML VIAL (J1200) IV ONE (13:30)
[2022-04-01] MEDS ORDERED: METOCLOPRAMIDE INJ 10MG/2ML VIAL (J2765 PER 1) IV ONE (13:30)
[2022-04-01 13:52] LABS: ALBUMIN 4.1 GM/DL (3.2-5.2); ALT/SGPT 21 U/L (12-78); BILIRUBIN,TOTAL 0.5 MG/DL (0.2-1.0); BLOOD UREA NITROGEN 11 MG/DL (7-18); CALCIUM LEVEL 9.6 MG/DL (8.5-10.1); CARBON DIOXIDE LEVEL 27 MEQ/L (21-32); CHLORIDE LEVEL 109 MEQ/L (98-107); CREATININE FOR GFR 0.73 MG/DL (0.55-1.30); GLOMERULAR FILTRATION RATE > 60.0 (>60); GLUCOSE, FASTING 78 MG/DL (70-100); POTASSIUM SERUM 4.3 MEQ/L (3.5-5.1); SODIUM LEVEL 141 MEQ/L (136-145); TOTAL PROTEIN 7.8 GM/DL (6.4-8.2)
[2022-04-01] MEDS ORDERED: AMOX875T2 PO (14:08)
[2022-04-01] MEDS ORDERED: ONDA4TAB6 PO (14:14)
[2022-04-01 14:33] VITALS: BP 134/74
== END 2022-04-01 15:01 | disposition home or self-care (01) ==
LOC: M ED 10:31
DX: R51.9 Headache, unspecified (principal); H66.90 Otitis media, unspecified, unspecified ear
CPT/HCPCS: 70450; 80053; 85027; 96361; 96374; 96375; 99284; J1200; J1885; J2405; J2765

== ENCOUNTER → 2022-04-06 | Outpatient (CLI) | payer OTHER ==
[~2022-04-06] MED LIST changes: +AMOX875T2 PO; +HYDR200T3; +LIDOCAINE 1% MDV 20ML VIAL As Ordered ONE; +ONDA4TAB6 PO
[2022-04-06 09:13] VITALS: BP 163/97
== END ==
LOC: M IRPRO 08:24
PROVIDERS: ATTEND Otolaryngology
DX: R59.9 Enlarged lymph nodes, unspecified (principal)

== ENCOUNTER → 2022-04-13 | Outpatient (CLI) | payer OTHER ==
[~2022-04-13] MED LIST changes: +ISOVUE-370 76% 100ML VIAL As Ordered ONE; -LIDOCAINE 1% MDV 20ML VIAL As Ordered ONE
[2022-04-13 17:31] LABS: BASO # 0.1 10^3/uL (0.0-0.2); EOS # 0.3 10^3/uL (0.0-0.5); EOS % 3.7 % (0.0-3.0); HEMATOCRIT 46.2 % (36.0-47.0); HEMOGLOBIN 15.5 g/dl (12.0-15.5); LYMPH # 1.5 10^3/uL (1.5-5.0); LYMPH % 16.3 % (24.0-44.0); MEAN CORPUSCULAR HEMOGLOBIN 30.5 pg (27.0-33.0); MEAN CORPUSCULAR HGB CONC 33.5 g/dl (32.0-36.5); MEAN CORPUSCULAR VOLUME 90.8 fl (80.0-96.0); MONO # 0.2 10^3/uL (0.0-0.8); MONO % 2.4 % (2.0-8.0); NEUTROPHILS % 76.3 % (36.0-66.0); PLATELET COUNT, AUTOMATED 363 10^3/uL (150-450); RED BLOOD COUNT 5.09 10^6/uL (4.00-5.40); WHITE BLOOD COUNT 9.2 10^3/uL (4.0-10.0)
[2022-04-13 18:01] LABS: ALBUMIN 4.1 GM/DL (3.2-5.2); ALT/SGPT 20 U/L (12-78); BILIRUBIN,TOTAL 0.7 MG/DL (0.2-1.0); BLOOD UREA NITROGEN 9 MG/DL (7-18); CALCIUM LEVEL 9.4 MG/DL (8.5-10.1); CARBON DIOXIDE LEVEL 25 MEQ/L (21-32); CHLORIDE LEVEL 109 MEQ/L (98-107); GLOMERULAR FILTRATION RATE > 60.0 (>60); GLUCOSE, FASTING 84 MG/DL (70-100); POTASSIUM SERUM 5.3 MEQ/L (3.5-5.1); SODIUM LEVEL 136 MEQ/L (136-145); TOTAL PROTEIN 8.6 GM/DL (6.4-8.2)
== END ==
LOC: M RAD 16:16
PROVIDERS: ATTEND Nurse Practitioner Family
DX: R06.00 Dyspnea, unspecified (principal)
CPT/HCPCS: 36415; 71275; 80053; 85025; 86140; Q9967

== ENCOUNTER → 2022-04-13 | Outpatient (REF) | payer OTHER ==
[~2022-04-13] MED LIST changes: -ISOVUE-370 76% 100ML VIAL As Ordered ONE
== END ==
LOC: M SFHCCLAY 14:37
PROVIDERS: ATTEND Nurse Practitioner Family
DX: R06.00 Dyspnea, unspecified (principal)

== ENCOUNTER → 2022-04-29 | Outpatient (CLI) | payer OTHER | LOC: M RAD 07:18 | PROVIDERS: ATTEND Physician Assistant | DX: R10.11 Right upper quadrant pain (principal) ==

== ENCOUNTER → 2022-05-04 | Outpatient (CLI) | payer OTHER | LOC: M RAD 18:14 | PROVIDERS: ATTEND Physician Assistant | DX: R19.7 Diarrhea, unspecified (principal); R07.81 Pleurodynia ==

== ENCOUNTER → 2022-05-11 | Outpatient (CLI) | payer OTHER | LOC: M RAD 16:10 | PROVIDERS: ATTEND Otolaryngology | DX: R59.9 Enlarged lymph nodes, unspecified (principal) ==

== ENCOUNTER → 2022-07-07 | Outpatient (REF) | payer OTHER | LOC: M LAB REF 17:30 | PROVIDERS: ATTEND Physician Assistant | DX: J03.90 Acute tonsillitis, unspecified (principal) ==

== ENCOUNTER → 2022-07-11 | Outpatient (CLI) | payer OTHER ==
[2022-07-11 13:58] LABS: MONO SCRN NEGATIVE (NEGATIVE)
[2022-07-12 13:07] LABS: EBV AB TO NUCLEAR ANTIGEN >600.0 U/mL (0.0-17.9); EBV VIRAL CAPSID AG IgM <36.0 U/mL (0.0-35.9)
== END ==
LOC: M LAB 11:57
PROVIDERS: ATTEND Nurse Practitioner Family
DX: R59.9 Enlarged lymph nodes, unspecified (principal); K11.20 Sialoadenitis, unspecified

== ENCOUNTER → 2022-09-20 | Outpatient (CLI) | payer OTHER, BC ==
[2022-09-20 15:51] LABS: HEMATOCRIT 40.9 % (36.0-47.0); HEMOGLOBIN 13.5 g/dl (12.0-15.5); MEAN CORPUSCULAR HEMOGLOBIN 30.3 pg (27.0-33.0); MEAN CORPUSCULAR VOLUME 91.9 fl (80.0-96.0); PLATELET COUNT, AUTOMATED 311 10^3/uL (150-450); RED BLOOD COUNT 4.45 10^6/uL (4.00-5.40); WHITE BLOOD COUNT 8.9 10^3/uL (4.0-10.0)
[2022-09-20 17:17] LABS: GC DNA AMPLIFICATION NEGATIVE (NEGATIVE)
[2022-09-20 18:53] LABS: HEPATITIS C VIRUS ABY INDEX 0.1 INDEX (<0.8); HIV 1&2 SCREEN CENTAUR NEGATIVE (NEGATIVE)
== END ==
LOC: M PLALAB 11:40
PROVIDERS: ATTEND Obstetrics & Gynecology
DX: Z34.80 Encounter for supervision of other normal pregnancy, unspecified trimester (principal); O99.611 Diseases of the digestive system complicating pregnancy, first trimester

== ENCOUNTER → 2022-11-02 | Outpatient (CLI) | payer OTHER, BC | LOC: M WHC 11:33 | PROVIDERS: ATTEND Advanced Practice Midwife | DX: Z34.02 Encounter for supervision of normal first pregnancy, second trimester (principal); Z3A.18 18 weeks gestation of pregnancy ==

== ENCOUNTER → 2022-11-02 | Outpatient (REF) | payer BC, OTHER | LOC: M SFHCWAGY 17:04 | PROVIDERS: ATTEND Advanced Practice Midwife | DX: Z34.02 Encounter for supervision of normal first pregnancy, second trimester (principal) ==

== ENCOUNTER → 2022-11-24 | Outpatient (CLI) | payer BC, OTHER | LOC: M WHC 15:07 | PROVIDERS: ATTEND Advanced Practice Midwife | DX: Z34.02 Encounter for supervision of normal first pregnancy, second trimester (principal); Z3A.21 21 weeks gestation of pregnancy ==

== ENCOUNTER → 2022-11-30 | Outpatient (CLI) | payer BC, OTHER | LOC: M PLALAB 14:49 | PROVIDERS: ATTEND Allergy & Immunology Allergy | DX: R10.9 Unspecified abdominal pain (principal) ==

== ENCOUNTER → 2022-12-15 | Outpatient (CLI) | payer OTHER | LOC: M WHC 13:54 | PROVIDERS: ATTEND Specialist | DX: Z34.82 Encounter for supervision of other normal pregnancy, second trimester (principal); Z3A.24 24 weeks gestation of pregnancy ==

== ENCOUNTER → 2022-12-27 | Outpatient (CLI) | payer OTHER ==
[2022-12-27 17:32] LABS: HEMATOCRIT 36.7 % (36.0-47.0); HEMOGLOBIN 12.3 g/dl (12.0-15.5); MEAN CORPUSCULAR HGB CONC 33.5 g/dl (32.0-36.5); MEAN CORPUSCULAR VOLUME 92.4 fl (80.0-96.0); PLATELET COUNT, AUTOMATED 334 10^3/uL (150-450); RED BLOOD COUNT 3.97 10^6/uL (4.00-5.40); WHITE BLOOD COUNT 11.3 10^3/uL (4.0-10.0)
[2022-12-27 19:18] LABS: GC DNA AMPLIFICATION NEGATIVE (NEGATIVE)
== END ==
LOC: M PLALAB 14:37
PROVIDERS: ATTEND Specialist
DX: Z34.82 Encounter for supervision of other normal pregnancy, second trimester (principal)

== ENCOUNTER → 2023-01-25 | Outpatient (CLI) | payer OTHER | LOC: M WHC 07:12 | PROVIDERS: ATTEND Specialist | DX: K80.50 Calculus of bile duct without cholangitis or cholecystitis without obstruction (principal) ==

== ENCOUNTER 2023-01-27 14:35 | Outpatient (CLI) | payer OTHER ==
[~2023-01-27] VITALS: Ht 167.6 cm; Wt 99.0 kg
[2023-01-27 15:00] VITALS: BP 120/73
[2023-01-27 15:59] VITALS: BP 113/68
== END 2023-01-27 16:30 | disposition home or self-care (01) ==
LOC: M LDO 14:35
PROVIDERS: ATTEND Advanced Practice Midwife
DX: O26.893 Other specified pregnancy related conditions, third trimester (principal); R00.0 Tachycardia, unspecified; Z3A.31 31 weeks gestation of pregnancy
CPT/HCPCS: 59025; G0463

== ENCOUNTER → 2023-03-07 | Outpatient (REF) | payer BC, OTHER | LOC: M PLALAB 14:52 | PROVIDERS: ATTEND Specialist | DX: Z36.85 Encounter for antenatal screening for Streptococcus B (principal) ==

== ENCOUNTER 2023-04-01 07:40 | Inpatient (IN) | payer BC, OTHER ==
[2023-04-01] VITALS (18 sets, daily range): BP systolic 114–139; BP diastolic 58–98
[~2023-04-01] VITALS: Ht 167.6 cm; Wt 107.1 kg
[2023-04-01] MEDS ORDERED: PRENTAB9 PO (07:54)
[2023-04-01] MEDS ORDERED: HOME MED LIST COMPLETE! XX SCH (07:55)
[2023-04-01] MEDS ORDERED: TRANEXAMIC ACID INJection 1,000 MG in NS 100 ML IV PRN (08:40)
[2023-04-01] MEDS ORDERED: LIDOCAINE 1% MDV 20ML VIAL INFIL PRN (08:40)
[2023-04-01] MEDS ORDERED: OXYTOCIN DRIP 30 UNITS in IV 1 EA IV PRN (08:40)
[2023-04-01] MEDS ORDERED: METHYLERGONOVINE MALEATE 0.2MG/ML 1ML VIAL IM PRN (08:40)
[2023-04-01] MEDS: miSOPROStol 50MCG 1/2 TABLET PO SCH ×4 (09:31→20:40)
[2023-04-01 09:49] LABS: HEMATOCRIT 35.2 % (36.0-47.0); HEMOGLOBIN 11.8 g/dl (12.0-15.5); MEAN CORPUSCULAR HEMOGLOBIN 29.9 pg (27.0-33.0); MEAN CORPUSCULAR HGB CONC 33.5 g/dl (32.0-36.5); MEAN CORPUSCULAR VOLUME 89.1 fl (80.0-96.0); PLATELET COUNT, AUTOMATED 387 10^3/uL (150-450); RED BLOOD COUNT 3.95 10^6/uL (4.00-5.40); WHITE BLOOD COUNT 12.4 10^3/uL (4.0-10.0)
[2023-04-01] MEDS ORDERED: FAMOTIDINE 20 MG TAB PO SCH (21:00)
[2023-04-01] MEDS ORDERED: OXYTOCIN DRIP 30 UNITS in IV 1 EA IV SCH (22:15)
[2023-04-01] MEDS: LR 1,000 ML IV SCH (22:43)
[2023-04-02] VITALS (34 sets, daily range): BP systolic 108–147; BP diastolic 56–89
[2023-04-02] MEDS: miSOPROStol 50MCG 1/2 TABLET PO SCH ×3 (00:40→08:40)
[2023-04-02] MEDS ORDERED: FENTANYL/ROPIVACAINE/NACL BAG 100 ML EPIDURAL SCH (01:15)
[2023-04-02] MEDS ORDERED: ePHEDrine SULFATE 25 MG/5 ML(5MG/ML) SYRINGE IVP PRN (01:15)
[2023-04-02] MEDS ORDERED: EPIDURAL/PCA KEYS XX PRN (01:15)
[2023-04-02] MEDS ORDERED: NALOXONE INJ 0.4MG/1ML VIAL IV PRN (01:15)
[2023-04-02] MEDS ORDERED: diphenhydrAMINE 50MG/ML VIAL IV PRN (01:15)
[2023-04-02] MEDS ORDERED: LR 500 ML IV PRN (01:15)
[2023-04-02] MEDS ORDERED: ONDANSETRON 4MG 2ML VIAL IV PRN (01:15)
[2023-04-02] MEDS: LR 1,000 ML IV SCH (06:43)
[2023-04-02] MEDS: PRENATAL VITAMINS CHEWABLE TABLET PO SCH (09:00)
[2023-04-02] MEDS ORDERED: ANUSOL HC CREAM 30GM TOP PRN (11:10)
[2023-04-02] MEDS ORDERED: ACETAMINOPHEN TAB 650MG DOSE (2X325MG) PO PRN (11:10)
[2023-04-02] MEDS ORDERED: DIBUCAINE 1% OINTMENT 30GM TOP PRN (11:10)
[2023-04-02] MEDS ORDERED: IBUPROFEN 600MG TAB PO PRN (11:10)
[2023-04-02] MEDS ORDERED: OXYTOCIN DRIP 30 UNITS in IV 1 EA IV SCH (11:10)
[2023-04-02] MEDS ORDERED: RHOGAM 300MCG (1500IU) INJ IM SCH (11:10)
[2023-04-02] MEDS ORDERED: MOM 30ML SUSPENSION UDC PO PRN (11:10)
[2023-04-02] MEDS ORDERED: METHYLERGONOVINE MALEATE 0.2 MG TAB PO PRN (11:10)
[2023-04-02] MEDS ORDERED: ACETAMINOPHEN 500 MG TAB PO PRN (11:10)
[2023-04-02] MEDS ORDERED: DOCUSATE SODIUM 100MG CAPSULE PO PRN (11:10)
[2023-04-02] MEDS: IBUPROFEN 800 MG TAB PO PRN (20:02)
[2023-04-03 05:58] VITALS: BP 122/82
[2023-04-03] MEDS: PRENATAL VITAMINS CHEWABLE TABLET PO SCH (08:01)
[2023-04-03] MEDS ORDERED: PRENATAL VITAMINS CHEWABLE TABLET PO SCH (09:00)
[2023-04-03] MEDS: IBUPROFEN 800 MG TAB PO PRN ×2 (12:58→19:57)
[2023-04-03 18:00] VITALS: BP 126/84
[2023-04-04 05:40] VITALS: BP 131/85
[2023-04-04] MEDS: PRENATAL VITAMINS CHEWABLE TABLET PO SCH (08:51)
[2023-04-04] MEDS ORDERED: MEASLES,MUMPS,RUBELLA VACCINE INJ (MMR-II) SC.IMMUN ONE (09:00)
[2023-04-04] MEDS ORDERED: COLA100C5 PO (09:40)
[2023-04-04] MEDS ORDERED: IBUP-1022 PO (09:40)
[2023-04-04] MEDS ORDERED: ACET-683 PO (09:40)
== END 2023-04-04 14:30 | disposition home or self-care (01) | DRG 560 ==
LOC: EEVIPCON 07:40 → M LDI 07:40 → M OBS 04-02 11:08
PROVIDERS: ADMIT Obstetrics & Gynecology; ATTEND Obstetrics & Gynecology
PROC: 3E033VJ Introduction of Other Hormone into Peripheral Vein, Percutaneous Approach (ICD-10-PCS; 2023-04-01)
PROC: 3E0DXGC Introduction of Other Therapeutic Substance into Mouth and Pharynx, External Approach (ICD-10-PCS; 2023-04-01)
PROC: 10E0XZZ Delivery of Products of Conception, External Approach (ICD-10-PCS; principal; 2023-04-02)
PROC: 0HQ9XZZ Repair Perineum Skin, External Approach (ICD-10-PCS; 2023-04-02)
DX: O48.0 Post-term pregnancy (principal); Z37.0 Single live birth; Z3A.40 40 weeks gestation of pregnancy

== ENCOUNTER → 2023-08-15 | Outpatient (CLI) | payer OTHER ==
[~2023-08-15] MED LIST changes: +ACET-683 PO; +COLA100C5 PO; +FAMO40TA3 PO; -HYDR200T3; +HYDR200T46; +IBUP-1022 PO; +PRENTAB9 PO; +SERT50TA29 PO
== END ==
LOC: M CLY 07:47
PROVIDERS: ATTEND Nurse Practitioner Family
DX: R06.2 Wheezing (principal)

== ENCOUNTER → 2023-09-06 | Outpatient (REF) | payer OTHER | LOC: M PLALAB 16:07 | PROVIDERS: ATTEND Obstetrics & Gynecology | DX: Z12.4 Encounter for screening for malignant neoplasm of cervix (principal) ==

== ENCOUNTER → 2023-09-13 | Outpatient (CLI) | payer OTHER | LOC: M SLEEP HO 08:47 | PROVIDERS: ATTEND Nurse Practitioner Family | DX: R06.83 Snoring (principal) ==

== ENCOUNTER → 2023-10-30 | Outpatient (REF) | payer OTHER ==
[2023-10-30 16:56] LABS: CHLAMYDIA DNA AMPLIFICATION NEGATIVE (NEGATIVE); GC DNA AMPLIFICATION NEGATIVE (NEGATIVE)
== END ==
LOC: M SFHCWAGY 15:20
PROVIDERS: ATTEND Obstetrics & Gynecology
DX: Z20.2 Contact with and (suspected) exposure to infections with a predominantly sexual mode of transmission (principal)

== ENCOUNTER → 2023-12-05 | Outpatient (CLI) | payer OTHER | LOC: M PLALAB 11:47 | PROVIDERS: ATTEND Registered Nurse | DX: Z33.1 Pregnant state, incidental (principal) ==

== ENCOUNTER → 2024-01-01 | Outpatient (CLI) | payer OTHER, MEDICAID ==
[2024-01-01 17:45] LABS: HEMATOCRIT 40.1 % (36.0-47.0); HEMOGLOBIN 13.1 g/dl (12.0-15.5); MEAN CORPUSCULAR HEMOGLOBIN 30.3 pg (27.0-33.0); MEAN CORPUSCULAR HGB CONC 32.7 g/dl (32.0-36.5); MEAN CORPUSCULAR VOLUME 92.8 fl (80.0-96.0); PLATELET COUNT, AUTOMATED 349 10^3/uL (150-450); RED BLOOD COUNT 4.32 10^6/uL (4.00-5.40)
[2024-01-01 18:33] LABS: HIV 1&2 SCREEN NEGATIVE (NEGATIVE)
[2024-01-01 18:42] LABS: HEPATITIS C VIRUS ABY INDEX < 0.02 INDEX (<0.8)
[2024-01-01 19:38] LABS: GC DNA AMPLIFICATION NEGATIVE (NEGATIVE)
== END ==
LOC: M PLALAB 15:23
PROVIDERS: ATTEND Obstetrics & Gynecology
DX: Z34.91 Encounter for supervision of normal pregnancy, unspecified, first trimester (principal)

== ENCOUNTER → 2024-01-30 | Outpatient (CLI) | payer OTHER, MEDICAID | LOC: M PLALAB 13:37 | PROVIDERS: ATTEND Advanced Practice Midwife | DX: Z34.92 Encounter for supervision of normal pregnancy, unspecified, second trimester (principal) ==

== ENCOUNTER → 2024-02-29 | Outpatient (CLI) | payer OTHER, MEDICAID | LOC: M RAD 12:40 | PROVIDERS: ATTEND Advanced Practice Midwife | DX: Z34.92 Encounter for supervision of normal pregnancy, unspecified, second trimester (principal) ==

== ENCOUNTER → 2024-03-06 | Outpatient (CLI) | payer OTHER, MEDICAID | LOC: M WHC 07:40 | PROVIDERS: ATTEND Specialist | DX: O26.899 Other specified pregnancy related conditions, unspecified trimester (principal); R10.9 Unspecified abdominal pain; Z3A.00 Weeks of gestation of pregnancy not specified ==

== ENCOUNTER 2024-03-15 07:20 | Outpatient (CLI) | payer OTHER, MEDICAID ==
[~2024-03-15] VITALS: Ht 167.6 cm; Wt 108.1 kg
[2024-03-15 07:38] VITALS: BP 121/68
[2024-03-15 08:41] LABS: HEMATOCRIT 38.9 % (36.0-47.0); HEMOGLOBIN 13.2 g/dl (12.0-15.5); MEAN CORPUSCULAR HEMOGLOBIN 30.3 pg (27.0-33.0); MEAN CORPUSCULAR HGB CONC 33.9 g/dl (32.0-36.5); MEAN CORPUSCULAR VOLUME 89.4 fl (80.0-96.0); PLATELET COUNT, AUTOMATED 284 10^3/uL (150-450); RED BLOOD COUNT 4.35 10^6/uL (4.00-5.40); WHITE BLOOD COUNT 7.5 10^3/uL (4.0-10.0)
[2024-03-15] MEDS: ONDANSETRON 4MG 2ML VIAL IV ONE (08:43)
[2024-03-15] MEDS: LR 1,000 ML IV ONE (08:43)
[2024-03-15 09:06] LABS: AMPHETAMINES LEVEL URINE NEGATIVE (NEGATIVE)
[2024-03-15 09:07] LABS: BARBITURATES URINE NEGATIVE (NEGATIVE); BENZODIAZEPINES URINE NEGATIVE (NEGATIVE); COCAINE METABOLITE URINE NEGATIVE (NEGATIVE); METHADONE URINE NEGATIVE (NEGATIVE); OPIATES URINE NEGATIVE (NEGATIVE); PHENCYCLIDINE URINE NEGATIVE (NEGATIVE)
[2024-03-15 09:09] LABS: CANNABINOIDS URINE POSITIVE (NEGATIVE)
[2024-03-15 09:12] LABS: ALBUMIN 2.7 G/DL (3.2-5.2); ALKALINE PHOSPHATASE 66 U/L (46-116); ALT/SGPT 17 U/L (7.0-40); AST/SGOT 31 U/L (<34); BILIRUBIN,TOTAL 0.5 MG/DL (0.3-1.2); BLOOD UREA NITROGEN < 5 MG/DL (9-23); CALCIUM LEVEL 8.7 MG/DL (8.5-10.1); CARBON DIOXIDE LEVEL 21 MMOL/L (20-31); CHLORIDE LEVEL 106 MMOL/L (98-107); GLOMERULAR FILTRATION RATE > 60.0 (>60); GLUCOSE, FASTING 85 MG/DL (60-100); POTASSIUM SERUM 4.4 MMOL/L (3.5-5.1); SODIUM LEVEL 137 MMOL/L (136-145); TOTAL PROTEIN 6.2 G/DL (5.7-8.2)
[2024-03-15 09:21] VITALS: BP 112/55
== END 2024-03-15 09:33 | disposition home or self-care (01) ==
LOC: M LDO 07:20
PROVIDERS: ATTEND Advanced Practice Midwife
DX: O21.8 Other vomiting complicating pregnancy (principal); O26.892 Other specified pregnancy related conditions, second trimester; R19.7 Diarrhea, unspecified; Z3A.21 21 weeks gestation of pregnancy
CPT/HCPCS: 59025; 80053; 80307; 81001; 85027; G0463; J2405

== ENCOUNTER → 2024-03-15 | Outpatient (CLI) | payer OTHER, MEDICAID | LOC: M RAD 10:26 | PROVIDERS: ATTEND Advanced Practice Midwife | DX: O99.212 Obesity complicating pregnancy, second trimester (principal) ==

== ENCOUNTER → 2024-05-02 | Outpatient (CLI) | payer OTHER, MEDICAID ==
[~2024-05-02] MED LIST changes: +ONDA-282 PO; -ONDA4TAB6 PO
[2024-05-02 18:07] LABS: HEMATOCRIT 35.4 % (36.0-47.0); MEAN CORPUSCULAR HEMOGLOBIN 30.9 pg (27.0-33.0); MEAN CORPUSCULAR HGB CONC 33.9 g/dl (32.0-36.5); MEAN CORPUSCULAR VOLUME 91.2 fl (80.0-96.0); PLATELET COUNT, AUTOMATED 318 10^3/uL (150-450); RED BLOOD COUNT 3.88 10^6/uL (4.00-5.40)
== END ==
LOC: M PLALAB 13:46
PROVIDERS: ATTEND Advanced Practice Midwife
DX: Z34.92 Encounter for supervision of normal pregnancy, unspecified, second trimester (principal); Z3A.23 23 weeks gestation of pregnancy

== ENCOUNTER 2024-05-14 13:40 | Emergency (ER) | payer OTHER, MEDICAID ==
[~2024-05-14] VITALS: Ht 167.6 cm; Wt 105.8 kg
[2024-05-14] MEDS ORDERED: FAMO40TA3 (13:50)
[2024-05-14 17:00] VITALS: BP 130/67; TEMP 98.8; O2SAT 100
== END 2024-05-14 17:01 | disposition home or self-care (01) ==
LOC: M ED 13:40
DX: O26.893 Other specified pregnancy related conditions, third trimester (principal); S70.922A Unspecified superficial injury of left thigh, initial encounter; K21.9 Gastro-esophageal reflux disease without esophagitis; K58.9 Irritable bowel syndrome, unspecified; Z79.899 Other long term (current) drug therapy; Z3A.29 29 weeks gestation of pregnancy; Y92.9 Unspecified place or not applicable; Y93.9 Activity, unspecified; Y99.9 Unspecified external cause status

== ENCOUNTER 2024-05-18 11:44 | Outpatient (CLI) | payer OTHER, MEDICAID ==
[~2024-05-18] VITALS: Ht 167.6 cm; Wt 105.4 kg
[~2024-05-18 11:44] MED LIST changes: +FAMO40TA3
[2024-05-18 12:05] VITALS: BP 133/62
[2024-05-18] MEDS ORDERED: HOME MED LIST COMPLETE! XX SCH (12:05)
== END 2024-05-18 12:37 | disposition home or self-care (01) ==
LOC: M LDO 11:44
PROVIDERS: ATTEND Specialist
DX: O26.893 Other specified pregnancy related conditions, third trimester (principal); O9A.213 Injury, poisoning and certain other consequences of external causes complicating pregnancy, third trimester; S80.12XA Contusion of left lower leg, initial encounter; R10.817 Generalized abdominal tenderness; Z3A.30 30 weeks gestation of pregnancy; W18.09XA Striking against other object with subsequent fall, initial encounter; Y92.009 Unspecified place in unspecified non-institutional (private) residence as the place of occurrence of the external cause; Y93.9 Activity, unspecified
CPT/HCPCS: 59025; G0463

== ENCOUNTER → 2024-06-05 | Outpatient (CLI) | payer OTHER, MEDICAID | LOC: M RAD 15:50 | PROVIDERS: ATTEND Obstetrics & Gynecology | DX: O26.843 Uterine size-date discrepancy, third trimester (principal); Z3A.32 32 weeks gestation of pregnancy ==

== ENCOUNTER → 2024-06-28 | Outpatient (REF) | payer OTHER, MEDICAID | LOC: M SFHCWAGY 14:50 | PROVIDERS: ATTEND Obstetrics & Gynecology | DX: Z34.93 Encounter for supervision of normal pregnancy, unspecified, third trimester (principal) ==

== ENCOUNTER 2024-07-31 18:59 | Inpatient (IN) | payer OTHER, MEDICAID ==
[~2024-07-31] VITALS: Ht 167.6 cm; Wt 112.3 kg
[2024-07-31] MEDS ORDERED: TUMS1000 PO (19:27)
[2024-07-31] MEDS ORDERED: HOME MED LIST COMPLETE! XX SCH (19:30)
[2024-07-31 19:47] VITALS: BP 134/79
[2024-07-31 19:53] LABS: HEMATOCRIT 33.3 % (36.0-47.0); HEMOGLOBIN 11.3 g/dl (12.0-15.5); MEAN CORPUSCULAR HEMOGLOBIN 30.1 pg (27.0-33.0); MEAN CORPUSCULAR HGB CONC 33.9 g/dl (32.0-36.5); MEAN CORPUSCULAR VOLUME 88.6 fl (80.0-96.0); PLATELET COUNT, AUTOMATED 350 10^3/uL (150-450); RED BLOOD COUNT 3.76 10^6/uL (4.00-5.40); WHITE BLOOD COUNT 15.2 10^3/uL (4.0-10.0)
[2024-07-31 21:02] LABS: HEPATITIS C VIRUS ABY INDEX 0.02 INDEX (<0.8)
[2024-07-31 21:15] VITALS: BP 121/80
[2024-07-31] MEDS ORDERED: OXYTOCIN DRIP 30 UNITS in IV 1 EA IV PRN (21:25)
[2024-07-31] MEDS ORDERED: OXYTOCIN INJ 10UNITS/ML 1ML VIAL IM PRN (21:25)
[2024-07-31] MEDS ORDERED: LIDOCAINE 1% MDV 20ML VIAL INFIL PRN (21:25)
[2024-07-31] MEDS ORDERED: TRANEXAMIC ACID INJection 1,000 MG in NS 100 ML IV PRN (21:25)
[2024-07-31] MEDS ORDERED: CARBOPROST TROMETHAMINE 250 MCG/ML AMP IM PRN (21:25)
[2024-07-31] MEDS: miSOPROStol 50MCG 1/2 TABLET PO ONE (21:39)
[2024-07-31 23:45] VITALS: BP 131/75
[2024-08-01] VITALS (22 sets, daily range): BP systolic 111–143; BP diastolic 56–86; TEMP 98.6; O2SAT 98–99
[2024-08-01] MEDS: OXYTOCIN DRIP 30 UNITS in IV 1 EA IV SCH ×2 (01:49→05:58)
[2024-08-01] MEDS: LR 1,000 ML IV SCH (01:49)
[2024-08-01] MEDS ORDERED: EPIDURAL/PCA KEYS XX PRN (02:40)
[2024-08-01] MEDS ORDERED: LR 500 ML IV PRN (02:40)
[2024-08-01] MEDS ORDERED: ePHEDrine SULFATE 25 MG/5 ML(5MG/ML) SYRINGE IVP PRN (02:40)
[2024-08-01] MEDS ORDERED: diphenhydrAMINE 50MG/ML VIAL IV PRN (02:40)
[2024-08-01] MEDS ORDERED: NALOXONE INJ 0.4MG/1ML VIAL IV PRN (02:40)
[2024-08-01] MEDS: FENTANYL/ROPIVACAINE/NACL BAG 100 ML EPIDURAL SCH (02:46)
[2024-08-01] MEDS: ONDANSETRON 4MG 2ML VIAL IV PRN (03:35)
[2024-08-01] MEDS ORDERED: RHO(D) IMMUNE GLOBULIN/MALTOSE 500MCG(2500IU)/2.2ML VIAL (WINRHO) IM SCH (05:30)
[2024-08-01] MEDS ORDERED: METHYLERGONOVINE MALEATE 0.2 MG TAB PO PRN (05:30)
[2024-08-01] MEDS ORDERED: DIBUCAINE 1% OINTMENT 30GM TOP PRN (05:30)
[2024-08-01] MEDS ORDERED: ACETAMINOPHEN 500 MG TAB PO PRN (05:30)
[2024-08-01] MEDS: IBUPROFEN 800 MG TAB PO PRN (05:48)
[2024-08-01] MEDS: METHYLERGONOVINE MALEATE 0.2MG/ML 1ML VIAL IM PRN (05:58)
[2024-08-01] MEDS: OXYTOCIN DRIP 30 UNITS in IV 1 EA IV PRN (06:15)
[2024-08-01] MEDS: PRENATAL VITAMINS CHEWABLE TABLET PO SCH (09:00)
[2024-08-01] MEDS: DOCUSATE SODIUM 100MG CAPSULE PO PRN (13:29)
[2024-08-01] MEDS: IBUPROFEN 600MG TAB PO PRN (18:49)
[2024-08-02 06:00] VITALS: BP 123/77; O2SAT 100
[2024-08-02] MEDS: ACETAMINOPHEN TAB 650MG DOSE (2X325MG) PO PRN (08:41)
[2024-08-02 11:03] VITALS: BP 121/81; O2SAT 98
[2024-08-03] MEDS ORDERED: MEASLES,MUMPS,RUBELLA VACCINE INJ (MMR-II) SC.IMMUN ONE (09:00)
== END 2024-08-02 12:57 | disposition home or self-care (01) | DRG 560 ==
LOC: M LDI 18:59 → M OBS 08-01 08:41
PROVIDERS: ADMIT Advanced Practice Midwife; ATTEND Advanced Practice Midwife
PROC: 3E0P7VZ Introduction of Hormone into Female Reproductive, Via Natural or Artificial Opening (ICD-10-PCS; 2024-07-31)
PROC: 3E033VJ Introduction of Other Hormone into Peripheral Vein, Percutaneous Approach (ICD-10-PCS; 2024-07-31)
PROC: 10E0XZZ Delivery of Products of Conception, External Approach (ICD-10-PCS; principal; 2024-08-01)
DX: O48.0 Post-term pregnancy (principal); O69.82X0 Labor and delivery complicated by other cord entanglement, without compression, not applicable or unspecified; Z37.0 Single live birth; Z3A.40 40 weeks gestation of pregnancy

== ENCOUNTER → 2025-01-16 | Outpatient (CLI) | payer MEDICAID, OTHER ==
[~2025-01-16] MED LIST changes: +TUMS1000 PO
[2025-01-16 18:22] LABS: Trichomonas vaginalis (AMP) NOT DETECTED (NEGATIVE)
[2025-01-16 18:35] LABS: HIV 1&2 SCREEN NEGATIVE (NEGATIVE)
[2025-01-16 18:43] LABS: HEPATITIS C VIRUS ABY INDEX 0.04 INDEX (<0.8)
[2025-01-16 18:46] LABS: GC DNA AMPLIFICATION NEGATIVE (NEGATIVE)
[2025-01-16 19:16] LABS: HEPATITIS B SURFACE ANTIGEN NEGATIVE (NEGATIVE)
== END ==
LOC: M PLALAB 14:28
PROVIDERS: ATTEND Advanced Practice Midwife
DX: Z20.2 Contact with and (suspected) exposure to infections with a predominantly sexual mode of transmission (principal)

== ENCOUNTER 2025-06-02 15:46 | Emergency (ER) | payer OTHER ==
[~2025-06-02] VITALS: Ht 165.1 cm; Wt 93.0 kg
[2025-06-02 15:51] VITALS: TEMP 100.1
[2025-06-02 17:13] LABS: BASO # 0.1 10^3/uL (0.0-0.2); BASO % 0.4 % (0.0-1.0); EOS # 0.4 10^3/uL (0.0-0.5); EOS % 2.9 % (0.0-3.0); LYMPH # 1.3 10^3/uL (1.5-5.0); LYMPH % 9.5 % (24.0-44.0); MONO # 0.7 10^3/uL (0.0-0.8); MONO % 4.9 % (2.0-8.0); NEUTROPHILS # 11.5 10^3/uL (1.5-8.5); NEUTROPHILS % 81.9 % (36.0-66.0); PLATELET COUNT, AUTOMATED 243 10^3/uL (150-450)
[2025-06-02 17:17] LABS: CALCIUM LEVEL 9.4 MG/DL (8.5-10.1); CARBON DIOXIDE LEVEL 27 MMOL/L (20-31); CHLORIDE LEVEL 103 MMOL/L (98-107); CREATININE FOR GFR 0.69 MG/DL (0.55-1.30); GLOMERULAR FILTRATION RATE > 90.0 (>60); POTASSIUM SERUM 3.9 MMOL/L (3.5-5.1); SODIUM LEVEL 140 MMOL/L (136-145)
[2025-06-02 17:20] LABS: HCG, SERUM QUALITATIVE NEGATIVE (NEGATIVE)
[2025-06-02] MEDS ORDERED: ISOVUE-370 76% 100 ML VIAL As Ordered ONE (17:39)
[2025-06-02] MEDS ORDERED: HOME MED LIST COMPLETE! XX SCH (18:30)
[2025-06-02] MEDS: AMPICILLIN SOD/SULBACTAM SOD 3 GM in DEXTROSE 5% (D5W) MINI-BAG PLU 100 ML IV ONE (20:19)
[2025-06-02] MEDS ORDERED: AMOX500T2 PO (21:25)
[2025-06-02] MEDS ORDERED: DEXA6TAB PO (21:25)
[2025-06-02 21:30] VITALS: BP 119/65; O2SAT 97
== END 2025-06-02 21:43 | disposition home or self-care (01) ==
LOC: M ED 15:46
DX: R22.1 Localized swelling, mass and lump, neck (principal); J35.1 Hypertrophy of tonsils; K21.9 Gastro-esophageal reflux disease without esophagitis; F32.A Depression, unspecified; F41.9 Anxiety disorder, unspecified
CPT/HCPCS: 70491; 80048; 84703; 85025; 87486; 87581; 87633; 87798; 96365; 96375; 99284; J0295; J1100; Q9967

== ENCOUNTER → 2025-07-08 | Outpatient (CLI) | payer OTHER ==
[~2025-07-08] MED LIST changes: +AMOX500T2 PO; +DEXA6TAB PO; -IBUP-1022 PO; +IBUP600T42 PO
== END ==
LOC: M RAD 09:49
PROVIDERS: ATTEND Registered Nurse
DX: R10.11 Right upper quadrant pain (principal)

== ENCOUNTER → 2025-07-17 | Outpatient (CLI) | payer OTHER | LOC: M RAD 12:33 | PROVIDERS: ATTEND Otolaryngology | DX: R59.0 Localized enlarged lymph nodes (principal) ==

== ENCOUNTER → 2025-08-26 | Outpatient (CLI) | payer OTHER ==
[~2025-08-26] MED LIST changes: +LIDOCAINE 1% MDV 20 ML VIAL SC SCH
[2025-08-26 07:40] VITALS: TEMP 97.6
[2025-08-26 08:26] VITALS: BP 115/72; O2SAT 99
== END ==
LOC: M IRPRO 07:15
PROVIDERS: ATTEND Otolaryngology
DX: R59.9 Enlarged lymph nodes, unspecified (principal)

== ENCOUNTER → 2025-10-01 | Outpatient (REF) | payer OTHER ==
[~2025-10-01] MED LIST changes: -LIDOCAINE 1% MDV 20 ML VIAL SC SCH
== END ==
LOC: M LAB REF 19:15
PROVIDERS: ATTEND Physician Assistant
DX: J02.9 Acute pharyngitis, unspecified (principal)

== ENCOUNTER → 2025-10-14 | Outpatient (REF) | payer MEDICAID, OTHER ==
[2025-10-16 18:27] LABS: HPV APTIMA Not Detected (Not Detected)
== END ==
LOC: M SFHCWAGY 14:10
PROVIDERS: ATTEND Physician Assistant
DX: Z01.419 Encounter for gynecological examination (general) (routine) without abnormal findings (principal)